=== PATIENT | male | born 1980 | race Caucasian/White ===

== ENCOUNTER 2023-03-01 10:30 | Emergency (ER) | payer OTHER, SELFPAY ==
[2023-03-01 10:38] VITALS: BP 140/94; PULSE 75; RESP 18; TEMP 36.6; O2SAT 99
--- NOTE | 2023-03-01 10:45 | DI.CT_ITS ---
Exam(s) CT ABDOMEN PELVIS W EXAM: CT ABDOMEN PELVIS W CLINICAL HISTORY: Left lower quadrant pain/lump TECHNIQUE: Imaging Protocol: Axial computed tomography images with coronal and sagittal reformatted images were created and reviewed CONTRAST MATERIAL: Intravenous: Omnipaque 350 Contrast volume:99 mL Oral: Yes COMPARISON: No exams were available for comparison FINDINGS: ABDOMEN: Lung Bases: Normal where visualized. 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 No measurable mass. Portal, Superior Mesenteric, and Splenic Veins: Unremarkable. Gallbladder and Biliary Tract: No radiodense calculus or dilation. Pancreas: Normal density, no abnormal calcifications or inflammatory process. Spleen: Normal. Adrenals: No masses seen. Kidneys: Normal size, contour and axis. No radiodense stones or obstructive uropathy. No masses seen. Abdominal Aorta: Abdominal portion non-dilated. Bowel: No obstruction or bowel wall thickening. There is no evidence of appendicitis. There is a mod erate amount of stool throughout the colon suggesting constipation. Peritoneal Cavity: No ascites, collection or mesenteric inflammatory response. No free air. Lymph Nodes: Within normal limits. Bones: Within normal limits for the patient's age. There is a hemangioma in the L3 vertebral body. Soft Tissues: There is a small fat containing umbilical hernia. PELVIS: Bladder: Symmetric distention, no gross wall thickening. Reproductive Organs: Unremarkable as visualized. Lymph Nodes: Within normal limits. Bones: Within normal limits for the patient's age. IMPRESSION: 1. No acute abdominal or pelvic process. 2. No evidence of a left inguinal hernia or soft tissue mass. 3. Findings were discussed with Vivek Rg at 1:50 p.m. on 03/01/2023. RADIATION DOSE DELIVERED: 746.84mGy.cm Total DLP DATA REPOSITORY: All CT scans at this facility are submitted to the National Radiology Data Registry (NRDR) Dose Index Registry (DIR) with the [employer] ([employer]). RADIATION OPTIMIZATION: All CT scans at this facility use at least one of these dose optimization te chniques: automated exposure control; mA and/or kV adjustment per patient size (includes targeted exa ms where dose is matched to clinical indication); or iterative reconstruction.
--- NOTE | 2023-03-01 10:56 | W.ED.GENAD ---
Discharge Plan Disposition Patient Disposition: Home Condition: Stable Discharge Details Clinical Impression: Constipation Primary Care Provider: Elizabeth,Local ED Provider: Vivek Rg Home Meds and New Rx's Prescriptions: Continued trazodone 100 mg Tablet 200 mg PO QHS dextroamphetamine-amphetamine [Adderall] 5 mg Tablet 5 mg PO PRN PRN duloxetine 60 mg Capsule,Delayed Release(Dr/Ec) 90 mg PO DAILY mecobalamin (vitamin B12) [B12 Active] 1,000 mcg Tablet,Chewable 1,000 mcg PO DAILY Discharge Instructions Instructions: Constipation (ED) Additional Instructions: At this time your CT imaging shows some signs of constipation otherwise shows no other intra-abdominal worrisome pathology or findings. Your labs are also unremarkable for any worrisome findings. As discussed stay well-hydrated and increase your fiber intake to help with your bowel movements. Please follow-up with your primary care provider for reassessment if not improving over the next 1 to 2 weeks. Referrals: [facility] [Outside] Discharge Data Discharge Date/Time-TO BE ENTERED AT DEPARTURE: 03/01/23 14:17 Medical Decision Making Patient presenting to the emergency department after referral from the [facility] for her chief complaint abdominal discomfort and swelling in left lower quadrant. He states this has been going on intermittently for the past year but has noticed some increased of symptoms. Patient does state some mild constipation but did have a bowel movement yesterday, reports some intermittent chills over the past year but no other abdominal complaint noted. He does state history of lumbar pain that he is undergoing treatment from primary care for. Patient denies any other significant past medical history. Physical exam does show slight tenderness to the left lower quadrant with palpable nodule that is consistent either with small hernia or lymph node. Exam is otherwise unremarkable. Patient denies any penile or genital symptoms or history of STI. Given duration of symptoms and some tenderness will perform CT imaging along with labs. Pending results patient denies any need for analgesia. Reviewed patient's labs and CBC is unremarkable, CMP shows just a slight decrease in sodium glucose of 111 slight elevation of bilirubin at 1.3 otherwise nondiagnostic labs all other LFTs are within normal range. Urinalysis is also negative. Reviewed CT imaging and spoke with radiologist and shows no acute findings noted except for some constipation. We will have patient follow-up with primary care provider and discussed [id number] meds and lifestyle changes that could help with constipation. After discussion of diagnosis and plan of care patient has no further needs, questions, or concerns and states clear understanding to return to the emergency department for any worsening symptoms. This documentation was generated using [employer] dictation system, please disregard any oddities of phrase or misspellings. Imaging Data Radiologic Study: Imaging: CT Scan Radiologist's impression: Patient Name: Dequan Delacruz RUnit #: [id number]: ER Ordering Provider: Vivek Rg NPAccount #: [id number]: REG ER Primary Care Provider: Elizabeth,LocalDate of Exam: 03/01/23Sex: M : 1980Age: 42 Exam(s) a CT:CT abdomen & pelvis w Exam(s) CT ABDOMEN PELVIS W EXAM: CT ABDOMEN PELVIS W CLINICAL HISTORY: Left lower quadrant pain/lump TECHNIQUE: Imaging Protocol: Axial computed tomography images with coronal and sagittal reformatted images were created and reviewed CONTRAST MATERIAL: Intravenous: Omnipaque 350 Contrast volume:99 mL Oral: Yes COMPARISON: No exams were available for comparison FINDINGS: ABDOMEN: Lung Bases: Normal where visualized. Liver: There is an area of relative hyper density in the left lobe of the liver which appears to result from the supply from an aberrant branch of the hepatic artery. No measurable mass. Portal, Superior Mesenteric, and Splenic Veins: Unremarkable. Gallbladder and Biliary Tract: No radiodense calculus or dilation. Pancreas: Normal density, no abnormal calcifications or inflammatory process. Spleen: Normal. Adrenals: No masses seen. Kidneys: Normal size, contour and axis. No radiodense stones or obstructive uropathy. No masses seen. Abdominal Aorta: Abdominal portion non-dilated. Bowel: No obstruction or bowel wall thickening. There is no evidence of appendicitis. There is a moderate amount of stool throughout the colon suggesting constipation. Peritoneal Cavity: No ascites, collection or mesenteric inflammatory response. No free air. Lymph Nodes: Within normal limits. Bones: Within normal limits for the patient's age. There is a hemangioma in the L3 vertebral body. Soft Tissues: There is a small fat containing umbilical hernia. PELVIS: Bladder: Symmetric distention, no gross wall thickening. Reproductive Organs: Unremarkable as visualized. Lymph Nodes: Within normal limits. Bones: Within normal limits for the patient's age. IMPRESSION: 1. No acute abdominal or pelvic process. 2. No evidence of a left inguinal hernia or soft tissue mass. Lab Data Lab results reviewed: Yes I reviewed the patient's lab results. HPI General Mode of arrival: ambulatory. Date/Time Provider Initiated Documentation: 03/01/23 10:35. Limitations to Documentation: no limitations. Information obtained by: patient and RN notes reviewed. History of Present Illness 42 year old M presents to the emergency department with the chief complaint of Left lower quadrant discomfort and lump, described as mild and moderate, Patient started experiencing this year(s) (1) and it has been intermittent. No relieving factors improve symptom(s), No exacerbating factors reported . Patient notes no other symptoms.. Patient did receive the following treatments prior to arrival, none Related Data Home Medications Medication Instructions Recorded Confirmed dextroamphetamine-amphetamine 5 mg 5 mg PO PRN PRN 03/01/23 03/01/23 tablet (Adderall) duloxetine 60 mg capsule,delayed 90 mg PO DAILY 03/01/23 03/01/23 release mecobalamin (vitamin B12) 1,000 1,000 mcg PO DAILY 03/01/23 03/01/23 mcg chewable tablet (B12 Active) trazodone 100 mg tablet 200 mg PO QHS 03/01/23 03/01/23 Allergies Allergy/AdvReac Type Severity Reaction Status Date / Time No Known Allergies Allergy Unverified 03/01/23 10:39 General Stated Complaint: Abd Prob JIMMY: 3 Review of Systems Constitutional Constitutional: Denies chills, Denies fever(s) and Reports poor appetite Cardiovascular Cardiovascular: Denies chest pain and Denies dyspnea Respiratory Respiratory: Denies cough and Denies dyspnea Gastrointestinal Gastrointestinal: Reports as per HPI, Reports abdominal pain, Denies melena, Denies change in bowel habits, Reports change in stool character, Reports constipation, Denies diarrhea, Denies nausea and Denies vomiting Genitourinary Genitourinary: Denies hematuria, Denies difficulty urinating, Denies urinary hesitancy, Denies urinary incontinence and Denies urinary urgency Integumentary/Breasts Skin/Breast: Denies rash PFSH All Active Problems (Updated 03/01/23 @ 14:11 by Vivek Rg NP) Constipation (Acute) Social History Smoking/Tobacco Use Status: Former Tobacco Use Smoking risk assessment performed?: Yes Alcohol Intake: current Alcohol Intake frequency: a few times a week Substance use type: marijuana Exam Const General: cooperative Orientation: alert, awake and oriented x3 Resp Effort & Inspection: normal respiratory effort and able to speak in complete sentences Auscultation: clear to auscultation bilaterally Cardio Rate: regular rate Rhythm: regular rhythm Heart Sounds: S1 normal and S2 normal GI Inspection: normal to inspection Palpation: soft, no hepatosplenomegaly, not firm, no guarding, no masses, no pulsatile masses, not rigid, no splenomegaly, tender in the LLQ; Gonzáles's sign negative, psoas sign negative, with no rebound tenderness and Rovsing's sign negative and other (Small palpable nodule left lower quadrant) Auscultation: normal bowel sounds Back/Spine/Pelvis Back: no CVA tenderness Neuro General: patient alert, patient awake, patient oriented x3, gait normal and moves all extremities Course Vital Signs Vital signs: Vital Signs Temperature 36.6 C 03/01/23 10:38 Pulse 75 03/01/23 10:38 Respiratory Rate 18 03/01/23 10:38 Blood Pressure 140/94 H 03/01/23 10:38 Pulse Oximetry 99 03/01/23 10:38 Temperature 36.6 C 03/01/23 10:38 Temperature Source Temporal Artery Scan 03/01/23 10:38 Pulse 75 03/01/23 10:38 Respiratory Rate 18 03/01/23 10:38 Respiratory Effort Normal, Non-Labored 03/01/23 10:37 Blood Pressure 140/94 H 03/01/23 10:38 Pulse Oximetry 99 03/01/23 10:38 Oxygen Delivery Method Room Air 03/01/23 10:38 Oxygen Flow Rate 0 03/01/23 10:38 PAWSS Have you Been Recently Intoxicated or Drunk Within the Last 30 days?: Yes Have you Ever Experienced Previous Episodes of Alcohol Withdrawal?: No Have you ever Experienced Withdrawal Seizures?: No Have you ever Experienced Delirium Tremens(DT)s?: No Have you ever undergone Alcohol Rehabilitation Treatment (i.e, inpt ot outpatient treatment programs)?: No Have you ever Experienced Blackouts?: No Have you ever Combined Alcohol with other Downers within the last 90 days?: No Have you ever Combined Alcohol with any other Substance of Abuse during the last 90 days?: No Positive Blood Alcohol level on Presentation? [PCS.BAL]: Yes Evidence of Increased Autonomic Activity (i.e. HR>120, tremor, sweating, agitation, nausea)?: No Result: 2
[2023-03-01 11:08] LABS: Abs Immature Grans 0.01 10^3/uL (0.0-0.06); Absolute Basophil Count 0.04 10^3/uL (0.0-0.2); Absolute Eosinophil Count 0.13 10^3/uL (0.0-0.7); Absolute Lymphocyte Count 1.93 10^3/uL (1.2-3.4); Absolute Monocyte Count 0.46 10^3/uL (0.1-0.8); Absolute Neutrophil Count 2.31 10^3/uL (1.2-6.7); Basophils % 0.8; Eosinophils % 2.7; HCT 47.4 % (40.0-50.0); HGB 16.7 g/dL (13.5-17.5); Immature Grans % 0.2; Lymphocytes % 39.5; MCH 31.5 pg (27.0-33.0); MCHC 35.2 % (32.0-36.0); MCV 89 fL (80-95); MPV 10.6 fL (8.0-11.0); Monocytes % 9.4; Neutrophils % 47.4; Platelet Count 222 10^3/uL (130-400); RDW 11.9 % (11.8-14.1); RDW-SD 39.3 fL; WBC 4.88 10^3/uL (4.4-10.8)
[2023-03-01] MEDS: Breeza Beverage 473 ML BTL 900 ML PO (11:29)
[2023-03-01] MEDS: Omnipaque 350 MG/ML 50 ML BTL PO (11:30)
[2023-03-01 11:33] LABS: ALT 40 U/L (16-63); AST 26 U/L (15-37); Albumin 4.4 g/dL (3.4-5.0); Alkaline Phosphatase 46 U/L (46-116); BUN 14 mg/dL (7-18); Bilirubin, Total 1.3 mg/dL (0.2-1.0); CREATININE 1.1 mg/dL (0.70-1.30); Calcium 9.4 mg/dL (8.5-10.1); Chloride 101 mmol/L (98-107); Estimated GFR 84.89 (mL/min/1.73m2); Glucose 111 mg/dL (74-106); Magnesium 2.2 mg/dL (1.8-2.4); Sodium 135 mmol/L (136-145); Total Protein 7.6 g/dL (6.4-8.2)
[2023-03-01 12:13] LABS: Bilirubin Negative (Negative); Blood Negative (Negative); Clarity Sl Cloudy (Clear); Glucose Negative (Negative); Ketones Negative (Negative); Leukocyte Esterase Negative (Negative); Nitrite Negative (Negative); Specific Gravity 1.015 (1.005-1.025); Urobilinogen 0.2 mg/dL (Up to 0.2); pH 8.5 (5-8)
[2023-03-01] MEDS: Omnipaque 350 MG/ML 500 ML BTL-Imaging package IJ (13:11)
[2023-03-01] MEDS: Normal Saline Flush 10 ML SYR IVP (13:13)
[2023-03-01] MEDS: Normal Saline - Diluent 50 ML VIAL IJ (13:13)
== END 2023-03-01 14:17 | disposition home or self-care (01) ==
PROVIDERS: Emergency Provider Nurse Practitioner Family
DX: K59.00 Constipation, unspecified (principal); R19.04 Left lower quadrant abdominal swelling, mass and lump
CPT/HCPCS: 80053; 99285; 74177; 81003; 83735; 85025; 99284; Q9967